=== PATIENT | male | born 1970 ===

== ENCOUNTER 2016-09-11 10:20 | Inpatient (IN) | payer MEDICAID ==
--- NOTE | 2016-09-11 10:54 | C.PDOC ---
History Of Present Illness A 46 year old comes in requesting heroin and EToH detox. Patient reports his last use was 2 days ago and c/o shakes, jitter, racing thoughts, and suicidal thoughts for the last few days. Patient notes no suicidal plans and denies trauma, fever, chills, homicidal ideation, abdominal pain, or any other complaints. SUICIDAL THOUGHTS, REQUESTING HEROIN AND ETOH DETOX. LAST USE 2 DAYS AGO. CO SHAKES, JITTERS, RACING THOUGHTS. NO SUICIDE PLAN EXAM NONTOXIC PSYCH +SI. NO ACTIVE INTOX, MILD WITHDRAWAL. NO TREMORS, HALLUCINATIONS. REMAINDER NEG Time Seen by Provider: 09/11/16 10:47 Chief Complaint (Nursing): Substance Abuse History Per: Patient History/Exam Limitations: no limitations Onset/Duration Of Symptoms: Days Current Symptoms Are (Timing): Still Present Suicide/Self Injury Attempted (Context): None Modifying Factor(s): Alcohol, Other (Heroin) Severity: Mild Associated Symptoms: Suicidal Thoughts. denies: Suicidal Plan Recent travel outside of the [place]: No Additional History Per: Patient Past Medical History Reviewed: Historical Data, Nursing Documentation, Vital Signs Vital Signs: Last Vital Signs Temp 98.1 F 09/11/16 10:28 Pulse 80 09/11/16 10:28 Resp 20 09/11/16 10:28 BP 109/72 09/11/16 10:28 Pulse Ox 98 09/11/16 12:20 Family History: States: Unknown Family Hx - Social History Hx Alcohol Use: Yes Hx Substance Use: Yes (HEROIN,COCAINE) - Immunization History Hx Influenza Vaccination: No Review Of Systems Except As Marked, All Systems Reviewed And Found Negative. Constitutional: Positive for: Other (Shakes, jitters, racing thoughts). Negative for: Fever, Chills Gastrointestinal: Negative for: Abdominal Pain, Other (Trauma) Psych: Positive for: Suicidal ideation. Negative for: Other (Homicidal ideation ) Physical Exam - Physical Exam Appears: Non-toxic, No Acute Distress, Other (No active intoxication. Mild withdrawal. No tremors) Skin: Warm, Dry Head: Atraumatic, Normacephalic Eye(s): bilateral: Normal Inspection, PERRL, EOMI Cardiovascular: Rhythm Regular, No Murmur Respiratory: Normal Breath Sounds, No Rales, No Rhonchi, No Wheezing Neurological/Psych: Oriented x3, Normal Speech, Other (Hallucinations. Psych + suicidal ideation.) ED Course And Treatment - Laboratory Results Result Diagrams: 09/11/16 11:06 09/11/16 11:06 O2 Sat by Pulse Oximetry: 98 (RA) Pulse Ox Interpretation: Normal Progress - Re-Evaluation Re-evaluation Note: 09/11/16 10:51 d/w crisis CAROL KWAN EVAL IN ER 09/11/16 11:27 MED CLEAR FOR PSYCH 09/11/16 12:20 cleared from 1:1 by crisis [facility]. pending detox eval - Data Reviewed Data Reviewed: Old records Medical Decision Making Medical Decision Making: Impression: 46 y/o request for detox of Heroin and EToH, c/o SI racing thoughts , jitters, shakes but no suicidal plan. Plans: Blood labs Catapres Librium IV fluids Crisis Eval Reassess and disposition Crisis was contacted for pt evaluation. Disposition - Disposition Disposition: HOSPITALIZED Disposition Time: 12:54 Condition: STABLE - POA Present On Arrival: None - Clinical Impression Clinical Impression: Opiate dependence - Scribe Statement The provider has reviewed the documentation as recorded by the Scribe Keon grewal All medical record entries made by the Scribe were at my direction and personally dictated by me. I have reviewed the chart and agree that the record accurately reflects my personal performance of the history, physical exam, medical decision making, and the department course for this patient. I have also personally directed, reviewed, and agree with the discharge instructions and disposition. Decision To Admit - Pt Status Changed To: Hospital Disposition Of: Inpatient - Admit Certification Admit to Inpatient:: After my assessment, the patient will require hospitalization for at least two midnights. This is because of the severity of symptoms shown, intensity of services needed, and/or the medical risk in this patient being treated as an outpatient. - InPatient: Physician Admission Certification: I certify that this patient requires 2 or more midnights of care for the following reason:: see note - . Bed Request Type: Detox Admitting Physician: Krystal Magallanes Patient Diagnosis: Opiate dependence
[2016-09-11 11:11] LABS: BASO # 0.1 K/uL (0.0-0.2); EOS # 0.1 K/uL (0.0-0.7); EOS % 1.7 % (0.0-4.0); HEMATOCRIT 39.1 % (35.0-51.0); LYMPH # 1.2 K/uL (1.0-4.3); LYMPH % 17.8 % (20.0-40.0); MEAN CELL VOLUME 90.3 fL (80.0-94.0); MEAN CORPUSCULAR HGB CONC 33.3 g/dL (33.0-37.0); MEAN PLATELET VOLUME 7.8 fL (7.2-11.7); MONO # 0.5 K/uL (0.0-0.8); MONO % 6.7 % (0.0-10.0); RED CELL DISTRIBUTION WIDTH 14.1 % (11.5-14.5); WHITE BLOOD COUNT 6.9 K/uL (4.8-10.8)
[2016-09-11 11:15] LABS: RBC URINE < 1 /hpf (0-3); URINE BILIRUBIN NEGATIVE (NEGATIVE); URINE BLOOD NEGATIVE (NEGATIVE); URINE COLOR Yellow (YELLOW); URINE GLUCOSE (UA) NORMAL (Normal); URINE KETONE NEGATIVE (NEGATIVE); URINE LEUKOCYTE ESTERASE NEG Leu/uL (Negative); URINE PROTEIN NEGATIVE (NEGATIVE); URINE UROBILINOGEN NORMAL mg/dL (0.2-1.0)
[2016-09-11 11:17] LABS: CHLORIDE 97 mmol/L (98-107); POTASSIUM 4.2 mmol/L (3.6-5.2); SODIUM 139 mmol/L (132-148)
[2016-09-11 11:19] LABS: GFR AFRICAN-AMERICAN > 60
[2016-09-11 11:20] LABS: ALB/GLOB RATIO 1.2 (1.0-2.1); ALKALINE PHOSPHATASE 55 U/L (38-126); ALT/SGPT 20 U/L (21-72); AST/SGOT 18 U/L (17-59); BILIRUBIN,TOTAL 0.7 mg/dL (0.2-1.3); BLOOD UREA NITROGEN 12 mg/dL (9-20); CALCIUM 8.8 mg/dl (8.6-10.4); CARBON DIOXIDE 30 mmol/L (22-30); GLUCOSE,RANDOM 130 mg/dL (75-110); TOTAL PROTEIN 7.2 g/dL (6.3-8.3)
[2016-09-11 11:21] LABS: ALCOHOL SERUM < 10 mg/dl (0-10)
[2016-09-11] MEDS ORDERED: Aluminum Hydroxide/Magnesium Hydroxide Susp (30 mL) PO PRN (13:48)
--- NOTE | 2016-09-12 08:49 | PCM.PSYCH ---
Initial Psychiatric Evaluation - Initial Psychiatric Evaluation Type of Admission: Voluntary Legal Status: Capacity Chief Complaint (in patient's own words): I came in to get help History of Present Illness and Precipitating Events: This is a 44 years old HM, lives alone and works full-time as a poultry picking machine tender , with a history of opiate use disorder and alcohol use disorder came to the ED to get help in heroin detox. Patient reports of a long history of drinking and abusing heroin. As per the patient he started drinking and abusing heroin in 20s and over the course of years he started sniffing and injecting increasing amounts of heroin. He states that he is injecting 15-20 bags on a daily basis and drinking 12-15 24 oz beers on a daily basis. As per the patient 2 days ago he consumed 12 beers, and yesterday he injected almost 20 bags of heroin. Yesterday he started experiencing withdrawal symptoms and so came to the hospital to get help. Patient reports withdrawal symptoms sweating, headaches, anxiety, nausea, abdominal cramps and joint pains. Reports irritable mood but denies any feelings of hopelessness and helplessness. Denies any suicidal ideation or homicidal ideation. Patient denies any auditory or visual hallucinations or any psychotic symptoms. Denies any manic symptoms. Denies any other substance abuse. past medical history None Current Medications: Active Medications Generic Name Dose Route Start Last Admin Trade Name Kalyani PRN Reason Stop Dose Admin Acetaminophen 650 mg 09/11/16 13:48 Tylenol 325mg Tab PO Q4H PRN Fever greater than 101 F Al Hydrox/Mg Hydrox/Simethicone 30 ml 09/11/16 13:48 Maalox 30 Ml PO TID PRN Indigestion / Heartburn Clonidine HCl 0.1 mg 09/11/16 13:48 Catapres PO Q8 PRN COWS Score More or Equal to 5 Hydroxyzine HCl 25 mg 09/11/16 13:49 Atarax PO Q6 PRN Agitation Loperamide HCl 2 mg 09/11/16 13:48 Imodium PO Q8 PRN Diarrhea Ondansetron HCl 4 mg 09/11/16 13:48 Zofran Tab PO Q8 PRN Nausea/Vomiting Pseudoephedrine HCl 60 mg 09/11/16 13:48 Sudafed Tab PO QID PRN Nasal/Sinus Congestion Trazodone HCl 50 mg 09/11/16 22:14 09/11/16 22:29 Desyrel PO 50 mg HS PRN Administration Insomnia Past Psychiatric History - Past Psychiatric History Previous Treatment History: Inpatient Pertinent Medical Hx (Current Medical&Sleep Prob, Allergies): Allergies Allergy/AdvReac Type Severity Reaction Status Date / Time No Known Allergies Allergy Verified 09/11/16 10:29 No Known Home Med 09/11/16 Review of Systems - Review of Systems All systems: reviewed and no additional remarkable complaints except - Psychiatric Psychiatric: Anxiety, Irritability. absent: Auditory Hallucinations, Suicidal Ideation, Visual Hallucinations Mental Status Examination - Personal Presentation Personal Presentation: Looks stated age - Affect Affect: Constricted - Motor Activity Motor Activity: Calm - Reliability in Providing Information Reliability in Providing Information: Good - Speech Speech: Organized - Mood Mood: Anxious - Formal Thought Process Formal Thought Process: No Impairment - Obsessions/Compulsions Obsessions: No Compulsions: No - Cognitive Functions Orientation: Person, Place, Situation, Time Sensorium: Alert Attention/Concentration: Attentive Abstract Thinking: Hooper Estimate of Intelligence: Below average Judgement: Imparied, as evidence by: Poor judgement, Intact, as evidence by: Insight regarding need for hospitalization - Risk Risk: Withdrawal, Diminished functioning - Strength & Assets Inventory Strength & Assets Inventory: Cooperative DSM 5 DX - DSM 5 DSM 5 Diagnosis: Opioid use disorder severe Opioid withdrawal Alcohol use disorder severe - Recommended/Plan of Treatment Treatment Recommendations and Plan of Treatment: Opioid use disorder severe CBT Psychoeducation Supportive therapy, individual therapy Use AR for abstinence Opioid withdrawal CBT Psychoeducation Supportive therapy, individual therapy Clonidine when necessary Subutax when scoring Alcohol use disorder severe CBT Psychoeducation Supportive therapy, individual therapy Librium 25 mg by mouth every 6 hours when necessary Use AR for abstinence - Smoking Cessation Smoking Cessation Initiated: No
[2016-09-12] MEDS ORDERED: Buprenorphine Hydrochloride 2 mg SL ONE ×2 (10:14→11:14)
[2016-09-13] MEDS ORDERED: Buprenorphine Hydrochloride 2 mg SL SCH ×2 (10:00→10:17)
--- NOTE | 2016-09-13 16:56 | PCM.PYCHPN ---
Psychiatric Progress Note - Psychiatric Progress Note Patient Chief Complaint: I came here to get help. Problems Identified/Issues Discussed: Patient was seen and evaluated. Chart reviewed and discussed with the nurse. Pt states that he is feeling a bit agitated and does not know why. He is complaining of generalized body aches, intolerance to heat and cold, night sweats and nasal congestion. Patient also states that Suboxone makes him feel hot. His appetite is improving. He complains of poor sleep that he states is due to hospital staff coming in and out of his room constantly in the middle of the night. Patient wants to increase his Trazodone dose. He plans on going back to work after discharge. Medication Change: Yes (detox changes daily) Medical Record Reviewed: Yes Mental Status Examination - Cognitive Function Orientation: Person, Place, Situation, Time Memory: Intact Attention: WNL Concentration: WNL Association: WNL Fund of Knowledge: WNL - Mood Mood: Anxious - Affect Affect: Constricted - Speech Speech: Appropriate - Formal Thought Process Formal Thought Process: No Impairment - Suicidal Ideation Suicidal Ideation: No - Homicidal Ideation Homicidal Ideation: No Goal/Treatment Plan - Goal/Treatment Plan Need for Continued Stay: Discharge may exacerbated symptoms, Severe functional impairment Progress Toward Problem(s) and Goals/Treatment Plan: Opioid use disorder severe CBT Psychoeducation Supportive therapy, individual therapy Use ME for abstinence Opioid withdrawal CBT Psychoeducation Supportive therapy, individual therapy Clonidine when necessary Subutax when scoring Alcohol use disorder severe CBT Psychoeducation Supportive therapy, individual therapy Librium 25 mg by mouth every 6 hours when necessary Use ME for abstinence
[2016-09-14] MEDS ORDERED: Buprenorphine Hydrochloride 2 mg SL ONE (08:45)
--- NOTE | 2016-09-14 08:48 | PCM.PYCHDC ---
Mental Status Examination - Mental Status Examination Orientation: Person Discharge Summary - Discharge Note Consultations:: List each consultation separately and include: 1. Reason for request. 2. Findings. 3. Follow-up Summary of Hospital Course include:: 1. Description of specific treatment plan utilized for patients during their course of treatmen. 2. Summarize the time- course for resolution of acute symptoms and/or regressed behaviors. 3. Describe issues identified and worked on during hospitalization. 4. Describe medication utilized. 5. Describe medical problems identified and treated. 6. Reassessment of suicide risk - Final Diagnosis (DSM 5) Condition upon Discharge: STABLE Disposition: HOME/ ROUTINE Follow-up Treatment Plan: Opioid use disorder severe CBT Psychoeducation Supportive therapy, individual therapy Use DC for abstinence Opioid withdrawal CBT Psychoeducation Supportive therapy, individual therapy Clonidine when necessary Subutax when scoring Alcohol use disorder severe CBT Psychoeducation Supportive therapy, individual therapy Librium 25 mg by mouth every 6 hours when necessary Use DC for abstinence
[2016-09-14 09:33] VITALS: BP 100/61; PULSE 83; RESP 20; TEMP 97.6; O2SAT 98
== END 2016-09-14 11:25 | disposition home or self-care (01) | DRG 745 ==
LOC: C.ER 10:20 → C.7D 12:54
PROVIDERS: ADMIT Psychiatry & Neurology Psychiatry; ATTEND Psychiatry & Neurology Psychiatry
PROC: HZ2ZZZZ Detoxification Services for Substance Abuse Treatment (ICD-10-PCS; principal; 2016-09-11)
PROC: HZ59ZZZ Individual Psychotherapy for Substance Abuse Treatment, Supportive (ICD-10-PCS; 2016-09-11)
DX: F11.23 Opioid dependence with withdrawal (principal); F10.20 Alcohol dependence, uncomplicated